=== PATIENT | female | born 1960 | race American Indian/Alaskan Native ===

== ENCOUNTER 2018-09-30 14:06 | Emergency (ER) | payer OTHER ==
--- NOTE | 2018-09-30 14:45 | Emergency Department Report ---
Blank Doc - Documentation Documentation: pt presents to the ED with c/o cough that began 6 weeks ago states has white sputum production took two treatments of prednisone and took augmentin states it has not been improving no fever no night sweats PMHx HLD, HTN, DM
--- NOTE | 2018-09-30 15:10 | XRay Report ---
ROUTINE CHEST, TWO VIEWS: HISTORY: Cough for 6 weeks. The trachea, heart, mediastinal contour, lung mcnulty and bony thorax are unremarkable. IMPRESSION: Unremarkable chest x-ray.
[2018-09-30 16:27] LABS: Basophils % (Auto) 0.6 % (0.0-1.8); Eosinophils # (Auto) 0.2 K/mm3 (0.0-0.4); Eosinophils % (Auto) 3.7 % (0.0-4.3); Hematocrit 35.1 % (30.3-42.9); Hemoglobin 11.8 gm/dl (10.1-14.3); Lymphocytes % (Auto) 40.4 % (13.4-35.0); Mean Corpuscular HGB Conc 34 % (30-34); Mean Corpuscular Volume 83 fl (79-97); Monocytes # (Auto) 0.5 K/mm3 (0.0-0.8); Monocytes % (Auto) 10.9 % (0.0-7.3); Platelet Count 156 K/mm3 (140-440); Red Blood Count 4.23 M/mm3 (3.65-5.03); Red Cell Distribution Width 17.9 % (13.2-15.2)
--- NOTE | 2018-09-30 16:36 | Emergency Department Report ---
<MAXIMILIANO ATN - Last Filed: 09/30/18 16:34> ED Asthma HPI - General Chief Complaint: Upper Respiratory Infection Stated Complaint: COUGHING Time Seen by Provider: 09/30/18 14:42 Source: patient Mode of arrival: Ambulatory Limitations: No Limitations - History of Present Illness Initial Comments: Patient is a 58-year-old female who's had a cough for 6 weeks. Patient states initially when she became ill she had a dry cough with subjective fevers and body aches. Patient states that all these symptoms have resolved except for the cough with mild shortness of breath. Patient states she seen her primary care physician several times and other medications he is placed her on that worked. Patient was sent today to get a CT scan of the chest to rule out PE. Patient states that she has no nausea vomiting fevers chills - Related Data Previous Rx's Medication Instructions Recorded Last Taken Type Benzonatate [Tessalon Perles] 100 mg PO Q8HR PRN #20 capsule 09/30/18 Unknown Rx Loratadine [Claritin] 10 mg PO DAILY #30 tablet 09/30/18 Unknown Rx Allergies Allergy/AdvReac Type Severity Reaction Status Date / Time No Known Allergies Allergy Unverified 09/30/18 14:07 ED Review of Systems Comment: All other systems reviewed and negative ED Past Medical Hx - Past Medical History Hx Hypertension: Yes Hx Diabetes: Yes Additional medical history: HIGH CHOLESTROL - Surgical History Past Surgical History?: No - Social History Smoking Status: Never Smoker - Medications Home Medications: Home Medications Medication Instructions Recorded Confirmed Last Taken Type Benzonatate [Tessalon Perles] 100 mg PO Q8HR PRN #20 capsule 09/30/18 Unknown Rx Loratadine [Claritin] 10 mg PO DAILY #30 tablet 09/30/18 Unknown Rx ED Physical Exam - General Limitations: No Limitations General appearance: alert, in no apparent distress - Head Head exam: Present: atraumatic, normocephalic - Eye Eye exam: Present: normal appearance - ENT ENT exam: Present: mucous membranes moist - Neck Neck exam: Present: normal inspection - Respiratory Respiratory exam: Present: normal lung sounds bilaterally. Absent: respiratory distress, wheezes, rales, rhonchi - Cardiovascular Cardiovascular Exam: Present: regular rate, normal rhythm. Absent: systolic murmur, diastolic murmur, rubs, gallop - GI/Abdominal GI/Abdominal exam: Present: soft, normal bowel sounds - Extremities Exam Extremities exam: Present: normal inspection - Back Exam Back exam: Present: normal inspection - Neurological Exam Neurological exam: Present: alert, oriented X3 - Psychiatric Psychiatric exam: Present: normal affect, normal mood - Skin Skin exam: Present: warm, dry, intact, normal color. Absent: rash ED Course - Reevaluation(s) Reevaluation #1: 09/30/18 16:36 R studies have been ordered so we can do a CAT scan of the patient's chest to rule out PE and other pathology not seen on chest x-ray ED Medical Decision Making - Lab Data Result diagrams: 09/30/18 15:55 ED Disposition Clinical Impression: Cough Disposition: DC-01 TO HOME OR SELFCARE Condition: Stable Additional Instructions: Follow-up with a primary care doctor in 3-5 days or if symptoms worsen and continue return to emergency room as soon as possible. Prescriptions: Loratadine [Claritin] 10 mg PO DAILY #30 tablet Benzonatate [Tessalon Perles] 100 mg PO Q8HR PRN #20 capsule PRN Reason: Cough Referrals: [facility] MD KRISTA [Primary Care Provider] - 3-5 Days PRIMARY CAREMD [Referring] - 3-5 Days INA BIANCHI MD [Staff Physician] - 3-5 Days [facility] [Outside] - 3-5 Days [facility] [Outside] - 3-5 Days Forms: Work/School Release Form(ED) <CHI MARCUS - Last Filed: 09/30/18 18:40> ED Review of Systems ROS: Stated complaint: COUGHING Other details as noted in HPI ED Course Vital Signs 09/30/18 14:41 Temperature 97.5 F L Pulse Rate 91 H Respiratory 18 Rate Blood Pressure 152/73 O2 Sat by Pulse 98 Oximetry ED Medical Decision Making - Lab Data Result diagrams: 09/30/18 15:55 09/30/18 15:55 - Medical Decision Making Patient was originally seen by Dr. Maximiliano Tan. Patient was signed out to me for pending CTA of the chest. CTA has been dictated by radiologist as no PE or any abnormalities. Patient hasn't been notified of the CT results and laboratory results with no questions noted by the patient. A patient on Tessalon Perles as well as Claritin for the cough. Patient was instructed to Follow-up with a primary care doctor in 3-5 days or if symptoms worsen and continue return to emergency room as soon as possible. At time of discharge, the patient does not seem toxic or ill in appearance. No acute signs of distress noted. Patient agrees to discharge treatment plan of care. No further questions noted by the patient. Critical care attestation.: If time is entered above; I have spent that time in minutes in the direct care of this critically ill patient, excluding procedure time. ED Disposition Is pt being admited?: No Does the pt Need Aspirin: No
[2018-09-30 16:44] LABS: Calcium 9.5 mg/dL (8.4-10.2)
--- NOTE | 2018-09-30 17:47 | Cat Scan Report ---
PROCEDURE: CT ANGIO CHEST TECHNIQUE: Computerized tomographic angiography of the chest was performed after the IV injection of iodinated nonionic contrast including image processing. The image data was postprocessed using 2-di mensional multiplanar reformatted (MPR) and 3-dimensional (MIP and/or volume rendered) techniques. Au tomated exposure control, adjustment of mA and/or kV according to patient size, or iterative reconstr uction dose optimization techniques were utilized. CT DOSE LENGTH PRODUCT: 515 mGycm HISTORY: cough sob >1 month COMPARISONS: None . FINDINGS: Heart and pericardium: Normal. Thoracic aorta: Normal. Pulmonary vasculature: Normal. No evidence for PE is seen. Lymph nodes: No enlarged thoracic lymph nodes. Lungs: There are mild interstitial markings in the lingula, left lower lobe, and right lower lobe.. Pleural space: No effusion, thickening, or pneumothorax. Musculoskeletal structures: No significant abnormality. Upper abdominal structures: No significant abnormality. IMPRESSION: Interstitial markings bilaterally in the lower lung zones, probably chronic. No evidence for pulmonary embolism This document is electronically signed by Griselda Parrish MD., September 30 2018 05:45:53 PM ET
[2018-09-30 19:03] VITALS: BP 164/84
== END 2018-09-30 19:04 | disposition home or self-care (01) ==
LOC: ED 14:06
DX: R05 Cough (principal); R50.9 Fever, unspecified; R06.02 Shortness of breath; I10 Essential (primary) hypertension; E11.9 Type 2 diabetes mellitus without complications; E78.00 Pure hypercholesterolemia, unspecified
CPT/HCPCS: 36415; 71046; 71275; 80048; 85025; 99284; Q9967